=== PATIENT | female | born 1970 | race Two or more races ===

== ENCOUNTER → 2021-11-30 09:54 | Outpatient (CLI) | payer MEDICAID, SELFPAY ==
[2021-11-30 10:09] LABS: Hematocrit 30.9 % (37.0-47.0); Hemoglobin 9.9 g/dL (12.2-16.2)
[2021-12-01 11:34] LABS: FSH 2.3 mIU/mL (.)
== END ==
PROVIDERS: Visit Provider Obstetrics & Gynecology
DX: D25.9 Leiomyoma of uterus, unspecified (principal); N85.2 Hypertrophy of uterus; N94.10 Unspecified dyspareunia; R93.89 Abnormal findings on diagnostic imaging of other specified body structures
CPT/HCPCS: 83001; 85014; 85018

== ENCOUNTER → 2021-12-04 10:23 | Outpatient (CLI) | payer MEDICAID, SELFPAY ==
--- NOTE | 2021-12-04 10:24 | US_ITS ---
FINAL REPORT CLINICAL HISTORY: follow up on fibroids FINDINGS: Transvaginal sonographic images of the pelvis were obtained. The uterus is enlarged and measures 11 x 7.3 x 5.3. The endometrium measures 15 mm which is thickened but nonspecific. There is a fibroid in the uterus measuring up to 2.3 cm. There are several nabothian cysts. The right ovary measures 2.0 x 2.0 x 1.5 cm and is normal. The left ovary measures 6.0 x 1.3 x 3.1 cm. There are probable cysts in the left ovary measuring up to 2.7 cm. There is no significant free fluid. IMPRESSION: Fibroid uterus. Left ovarian cysts. Thickened endometrium. Consider ultrasound follow-up in 8-10 weeks. Reviewed, Interpreted and Dictated by Andrea Soto III, MD Transcribed by Joyec Cazares Authenticated by Andrea Soto III, MD on 12/04/2021 03:25:38 PM [facility]
== END ==
PROVIDERS: PCP Pediatrics; Visit Provider Obstetrics & Gynecology
DX: D25.9 Leiomyoma of uterus, unspecified (principal)
CPT/HCPCS: 76830

== ENCOUNTER → 2022-09-25 11:08 | Outpatient (CLI) | payer MEDICAID, SELFPAY ==
--- NOTE | 2022-09-25 11:14 | US_ITS ---
FINAL REPORT CLINICAL HISTORY: follow up to [facility] COMPARISON: November 2021 FINDINGS: Transvaginal sonographic images of the pelvis were obtained. The uterus measures 10.0 x 5.9 x 4.4 cm. The endometrium measures 6 mm, which is within normal limits. There is a stable 2.1 cm uterine fibroid. The right ovary measures 2.8 cm in length and left ovary measures 3.3 cm in length. Normal blood flow seen to the ovaries. Small follicles are present. There is no evidence of free fluid. IMPRESSION: Stable 2.1 cm uterine fibroid. Reviewed, Interpreted and Dictated by Andrea Soto III, MD Transcribed by Jairo Cota Authenticated and [facility]
[2022-09-25 11:59] LABS: Basophils % 0.7 % (0.1-2.0); Eosinophils # 0.1 K/mm3 (0.0-0.4); Eosinophils % 1.6 % (0.1-12.0); Hematocrit 38.4 % (37.0-47.0); Hemoglobin 12.6 g/dL (12.2-16.2); Lymphocytes # 1.8 K/mm3 (0.7-4.5); Lymphocytes % 27.8 % (10-50); Mean Corpuscular HGB Conc 32.8 g/dL (31.8-35.4); Mean Corpuscular Hemoglobin 28.4 pg (27.0-31.2); Mean Corpuscular Volume 86.6 fl (81-99); Mean Platelet Volume 8.7 fl (7.4-10.4); Monocytes # 0.4 K/mm3 (0.1-1.0); Monocytes % 5.4 % (1.7-9.3); Neutrophils # 4.3 K/mm3 (1.8-7.8); Neutrophils % 64.5 % (37.0-80.0); Platelet Count 301 K/mm3 (142-424); Red Blood Count 4.44 M/mm3 (4.20-5.40); White Blood Count 6.6 K/mm3 (4.8-10.8)
[2022-09-26 10:20] LABS: FSH 12.8 mIU/mL (.)
== END ==
PROVIDERS: PCP Obstetrics & Gynecology; Visit Provider Obstetrics & Gynecology
DX: D25.9 Leiomyoma of uterus, unspecified (principal); N92.0 Excessive and frequent menstruation with regular cycle
CPT/HCPCS: 36415; 76830; 83001; 85025